=== PATIENT | female | born 2005 | race African-American/Black ===

== ENCOUNTER 2024-07-17 11:23 | Emergency (ER) | payer MEDICAID ==
[~2024-07-17] VITALS: Ht 149.9 cm; Wt 62.0 kg
[2024-07-17 11:37] VITALS: TEMP 36.8; O2SAT 98
[2024-07-17 13:26] VITALS: BP 122/70; PULSE 74; RESP 18
[2024-07-17] MEDS: KETOROLAC 30MG/ML VIAL IM ONE (13:26)
[2024-07-17] MEDS: DEXAMETHASONE 10 MG/ML VIAL IM ONE (13:26)
[2024-07-17] MEDS ORDERED: ACET-2708 MT (14:26)
[2024-07-17] MEDS ORDERED: IBUP-2029 MT (14:26)
[2024-07-17] MEDS ORDERED: AMOX-494 MT (14:38)
== END 2024-07-17 15:18 | disposition home or self-care (01) ==
LOC: ER 11:23
DX: J02.9 Acute pharyngitis, unspecified (principal); R59.0 Localized enlarged lymph nodes
CPT/HCPCS: 99284; 81025; 87430; 96372; J1885; J1100

== ENCOUNTER 2024-08-22 16:32 | Emergency (ER) | payer SELFPAY ==
[~2024-08-22] VITALS: Ht 149.9 cm; Wt 61.0 kg
[~2024-08-22 16:32] MED LIST: ACET-2708 MT; AMOX-494 MT; IBUP-2029 MT
[2024-08-22 16:36] VITALS: BP 106/68; TEMP 36.6; O2SAT 99
[2024-08-22 16:38] VITALS: PULSE 101; RESP 18; O2SAT 96
[2024-08-22 18:31] LABS: BASOPHILS % 0.2 % (0.0-2.0); EOSINOPHILS % 1.3 % (0.0-5.0); HEMATOCRIT. 36.9 % (36.0-48.0); HEMOGLOBIN. 12.2 g/dL (12.0-16.0); LYMPHOCYTES % 25.9 % (20.0-50.0); MEAN CORPUSCULAR HEMOGLOBIN 28.4 pg (28.0-32.0); MEAN CORPUSCULAR HGB CONC 33.1 g/dL (31.0-37.0); MEAN CORPUSCULAR VOLUME 85.8 fL (81.0-99.0); MEAN PLATELET VOLUME 7.4 fl (7.4-10.4); MONOCYTES % 4.9 % (2.0-8.0); NEUTROPHILS % 67.7 % (40.0-76.0); PLATELET 419 x1000/uL (130-400); RED CELL DISTRIBUTION WIDTH 14.1 % (11.6-14.6)
[2024-08-22 18:37] LABS: CHLORIDE 108 mEq/L (98-107); POTASSIUM 3.8 mEq/L (3.5-5.1); SODIUM 142 mEq/L (136-145)
[2024-08-22 18:38] LABS: CARBON DIOXIDE 25 mEq/L (21-32)
[2024-08-22 18:39] LABS: CALCIUM 9.6 mg/dL (8.7-10.4)
[2024-08-22 18:43] LABS: CREATININE 0.6 mg/dL (0.6-1.0); GLUCOSE 88 mg/dL (70-105); UREA NITROGEN BLOOD 10 mg/dL (9-23)
[2024-08-22 18:54] LABS: HCG SCREEN NEGATIVE
== END 2024-08-22 19:58 | disposition home or self-care (01) ==
LOC: ER 16:32
DX: N93.9 Abnormal uterine and vaginal bleeding, unspecified (principal); Z79.899 Other long term (current) drug therapy
CPT/HCPCS: 36415; 80048; 84703; 85025; 99284